=== PATIENT | female | born 1965 | race Two or more races ===

== ENCOUNTER 2021-05-27 10:36 | Emergency (ER) | payer BC ==
[~2021-05-27] VITALS: Ht 157.5 cm; Wt 77.1 kg
[~2021-05-27 10:36] MED LIST: FAMO-12 PO; FLUT50SP13; IBUP600T27 PO; LOSA-39 PO
[2021-05-27 11:10] VITALS: BP 164/70
== END 2021-05-27 12:17 | disposition home or self-care (01) ==
LOC: ER 10:36
DX: G51.0 Bell's palsy (principal); E11.9 Type 2 diabetes mellitus without complications; I10 Essential (primary) hypertension
CPT/HCPCS: 70450

== ENCOUNTER 2022-07-01 16:07 | Emergency (ER) | payer BC, OTHER ==
[~2022-07-01] VITALS: Ht 160 cm; Wt 80.2 kg
[2022-07-01 16:13] VITALS: BP 188/97
[2022-07-01 17:11] LABS: Basophils # (auto) 0.1 10 ^3/uL (0-0.2); Basophils % (auto) 1.3 % (0.0-2.0); Eosinophils # (auto) 0.1 10 ^3/uL (0-0.8); Eosinophils % (auto) 1.8 % (0.0-7.0); Hematocrit 48.5 % (36.0-46.0); Hemoglobin 16.1 g/dL (12.2-16.2); Lymphocytes # (auto) 2.3 10 ^3/uL (0.4-5.4); Lymphocytes % (auto) 35.7 % (10.0-50.0); Mean Corpuscular Hemoglobin 32.2 pg (28.0-32.0); Mean Corpuscular Hgb Conc. 33.3 g/dL (32.0-36.0); Mean Corpuscular Volume 96.9 fL (80.0-100.0); Monocytes # (auto) 0.5 10 ^3/uL (0-1.3); Monocytes % (auto) 8.1 % (0.0-12.0); Neutrophils # (auto) 3.4 10 ^3/uL (1.6-8.6); Neutrophils % (auto) 53.1 % (37.0-80.0); Nucleated Red Blood Cells % 0.3 %; Red Blood Cells 5.01 10^6/uL (4.0-5.20); Red Cell Distribution Width 13.4 % (11.8-14.3); White Blood Cell 6.4 10^3/uL (4.4-10.8)
[2022-07-01 17:13] LABS: Albumin 4.5 g/dL (3.4-5.0); Calcium 9.6 mg/dL (8.5-10.1)
[2022-07-01 17:16] LABS: Bilirubin, Total 0.5 mg/dL (0.2-1.0); Total Protein 7.6 g/dL (6.4-8.2)
[2022-07-01 20:06] LABS: Urine Bacteria NONE SEEN /hpf (None Seen); Urine Blood Negative /uL (Negative); Urine Specific Gravity 1.011 (1.001-1.035); Urine WBC <1 /hpf (0 - 5)
== END 2022-07-01 21:40 | disposition home or self-care (01) ==
LOC: ER 16:07
DX: R07.89 Other chest pain (principal)
CPT/HCPCS: 36415; 80053; 81001; 84484; 85025; 93005